=== PATIENT | female | born 1975 | race African-American/Black ===

== ENCOUNTER 2018-09-05 14:09 | Outpatient (CLI) | payer BC | END 2018-09-05 21:09 | disposition home or self-care (01) | LOC: SMA 14:09 | PROVIDERS: ATTEND Family Medicine | DX: Z12.31 Encounter for screening mammogram for malignant neoplasm of breast (principal) | CPT/HCPCS: 77067 ==

== ENCOUNTER 2020-03-13 13:15 | Outpatient (CLI) | payer BC | END 2020-03-13 20:28 | disposition home or self-care (01) | LOC: SMA 13:15 | PROVIDERS: ATTEND Family Medicine | DX: Z12.31 Encounter for screening mammogram for malignant neoplasm of breast (principal) | CPT/HCPCS: 77067 ==